=== PATIENT | male | born 1990 | race Two or more races ===

== ENCOUNTER 2023-10-08 23:34 | Emergency (ER) | payer BC, OTHER ==
[~2023-10-08] VITALS: Ht 177.8 cm; Wt 97.7 kg
[2023-10-08 23:55] VITALS: BP 117/57; PULSE 93; RESP 20; O2SAT 93
[2023-10-09] MEDS: HYDROcodone-ACET 10/325MG TAB PO ONE (00:45)
== END 2023-10-09 02:15 | disposition left against medical advice (07) ==
LOC: ER 23:34
DX: S82.891A Other fracture of right lower leg, initial encounter for closed fracture (principal); S00.83XA Contusion of other part of head, initial encounter; F10.129 Alcohol abuse with intoxication, unspecified; X58.XXXA Exposure to other specified factors, initial encounter; Y93.89 Activity, other specified; Y92.89 Other specified places as the place of occurrence of the external cause; Y99.8 Other external cause status
CPT/HCPCS: 70450; 73610